=== PATIENT | female | born 1945 ===

== ENCOUNTER 2017-07-02 10:37 | Emergency (ER) | payer MEDICARE ==
[2017-07-02 10:48] VITALS: TEMP 97
[2017-07-02 10:49] VITALS: BMI 23.0
--- NOTE | 2017-07-02 11:14 | ED PDOC ---
HPI: General Adult Time Seen by Provider: 07/02/17 11:13 Chief Complaint (Nursing): Back Pain Chief Complaint (Provider): hip pain, back pain History Per: Patient, Family (Patient's daughter is at bedside translating for patient in Kosovan) Additional Complaint(s): 72-year-old female with history of back pain presents to emergency department with bilateral hip pain and lower back pain for 2 weeks. Patient slipped and fell at home last Saturday and never sought medical attention at that time. She takes Vicodin daily for pain as needed and she states this medication has not helped her pain. No radiation of pain to lower extremities, no bowel or bladder dysfunction, no fever or chills, no chest pain, shortness of breath or dyspnea on exertion. She woke up today with severe pain and called her daughter and patient was brought here by ambulance. Patient did not take Vicodin today. Past Medical History Reviewed: Historical Data, Nursing Documentation, Vital Signs Vital Signs: Last Vital Signs Temp 97 F L 07/02/17 10:48 Pulse 89 07/02/17 12:36 Resp 18 07/02/17 12:36 BP 161/88 H 07/02/17 12:36 Pulse Ox 98 07/02/17 13:52 - Medical History PMH: Arthritis, HTN, Hypercholesterolemia, Osteoporosis - Surgical History Surgical History: (x 1) - Family History Family History: States: No Known Family Hx - Living Arrangements Living Arrangements: With Family - Social History Current smoker - smoking cessation education provided: No Alcohol: None Drugs: Denies - Home Medications Home Medications: Ambulatory Orders Medication Instructions Recorded Cephalexin [Keflex] 500 mg PO BID #14 cap 06/11/15 Naproxen [Naprosyn Tab] 375 mg PO BID PRN #15 tab 06/11/15 Sulfamethoxazole/Trimethoprim 1 tab PO BID #14 tab 06/11/15 [Bactrim DS 800 mg-160 mg] Cyclobenzaprine [Cyclobenzaprine 10 mg PO TID PRN #20 tab 07/02/17 HCl] Naproxen [Naprosyn] 500 mg PO BID #20 tab 07/02/17 - Allergies Allergies/Adverse Reactions: Allergies Allergy/AdvReac Type Severity Reaction Status Date / Time No Known Allergies Allergy Verified 07/02/17 10:48 Review of Systems ROS Statement: Except As Marked, All Systems Reviewed And Found Negative Constitutional: Negative for: Fever, Chills, Weakness Cardiovascular: Negative for: Chest Pain Respiratory: Negative for: Cough Gastrointestinal: Negative for: Nausea, Vomiting Genitourinary Female: Negative for: Dysuria, Frequency, Incontinence, Hematuria Musculoskeletal: Positive for: Back Pain, Other (b/l hip pain) Neurological: Negative for: Weakness, Numbness, Incoordination, Change in Speech , Confusion, Seizures, Altered Mental Status, Headache, Dizziness Physical Exam - Reviewed Nursing Documentation Reviewed: Yes Vital Signs Reviewed: Yes - Physical Exam Appears: Positive for: Well, Non-toxic, No Acute Distress Skin: Negative for: Rash Eye Exam: Positive for: Normal appearance Neck: Positive for: Painless ROM Cardiovascular/Chest: Positive for: Regular Rate, Rhythm Respiratory: Positive for: Normal Breath Sounds, Respiratory Distress. Negative for: Wheezing Gastrointestinal/Abdominal: Positive for: Soft. Negative for: Tenderness, Distended, Guarding, Rebound Back: Positive for: Vertebral Tenderness (Across lower lumbar region with palpable muscle spasm). Negative for: L CVA Tenderness, R CVA Tenderness Extremity: Positive for: Other (Tenderness to lateral aspect of both hips, full range of motion lower extremities) Neurologic/Psych: Positive for: Alert, Oriented - Laboratory Results Urine dip results: Negative for: Leukocyte Esterase, Blood, Nitrate, Ketones, Glucose, Bilirubin, Protein - ECG O2 Sat by Pulse Oximetry: 98 Pulse Ox Interpretation: Normal - Other Rad L/S Spine X-ray X-Ray: Interpreted by Me, Viewed By Me X-Ray Interpretation: no fx, no dis Pelvis and B/L Hips X-Ray: Interpreted by Me, Viewed By Me X-Ray Interpretation: no fx, no dis Medical Decision Making Medical Decision Makin72 year old with low back pain and bilateral hip pain Plan: UA X-rays LS Spine, b/l hips and pelvis IM toradol PO valium PO percocet Patient states she feels much better after meds given in ED. Patient was able to walk to bathroom and states she feels much better. Patient has vicodin at home that she was instructed to continue with. Rx flexeril and naprosyn given. Advised PMD follow up in 2-3 days. Disposition - Clinical Impression Clinical Impression: Back pain, Hip pain - Patient ED Disposition Is Patient to be Admitted: No Counseled Patient/Family Regarding: Studies Performed, Diagnosis, Need For Followup, Rx Given - Disposition Referrals: [facility] [place] [Outside] Disposition: Routine/Home Disposition Time: 14:48 Condition: IMPROVED Additional Instructions: CONTINUE WITH THE HYDROCODONE (VICODIN) THAT YOU HAVE AT HOME AND TAKE WITH NEW RX MEDS. REST AND AVOID HEAVY LIFTING. FOLLOW UP WITH PRIMARY CARE DOCTOR IN 2 -3 DAYS. Prescriptions: Cyclobenzaprine [Cyclobenzaprine HCl] 10 mg PO TID PRN #20 tab PRN Reason: Muscle Spasm Naproxen [Naprosyn] 500 mg PO BID #20 tab Instructions: Hip Pain (DC) Forms: [facility] (Kosovan) Print Language: KITTITIAN
[2017-07-02] MEDS ORDERED: Oxycodone/Acetaminophen 5/325 mg Tab PO STA (11:47)
[2017-07-02] MEDS ORDERED: Oxycodone/Acetaminophen 5/325 mg Tab ONE (12:06)
[2017-07-02 12:45] VITALS: BP 161/88; PULSE 89; RESP 18
--- NOTE | 2017-07-02 12:51 | RAD ---
PROCEDURE: Radiographs of the Lumbar Spine. HISTORY: pain COMPARISON: No prior. FINDINGS: BONES: Normal alignment. No listhesis. No fracture. DISC SPACES: Unremarkable. OTHER FINDINGS: None. IMPRESSION: Unremarkable radiographs of the lumbar spine.
--- NOTE | 2017-07-02 12:52 | RAD ---
PROCEDURE: Radiographs of the pelvis and bilateral hips HISTORY: pain COMPARISON: None. FINDINGS: BONES: Pelvis: Unremarkable. Right hip:Unremarkable. Left hip:Unremarkable. JOINTS: Right hip: Mild osteoarthritis. Marginal osteophyte superior acetabulum. Left hip: Mild osteoarthritis. Marginal osteophyte superior acetabulum. Sacroiliac Joints: Unremarkable. Pubic symphysis: Unremarkable. SOFT TISSUES: Normal. OTHER FINDINGS: None. IMPRESSION: Mild bilateral osteoarthritis. Otherwise unremarkable.
[2017-07-02 13:15] VITALS: O2SAT 98
[2017-07-02 15:00] LABS: SQUAMOUS EPITHIAL < 1 /hpf (0-5); URINE BILIRUBIN NEGATIVE (NEGATIVE); URINE BLOOD NEGATIVE (NEGATIVE); URINE CLARITY CLEAR (Clear); URINE COLOR YELLOW (YELLOW); URINE GLUCOSE (UA) NEG (Normal); URINE LEUKOCYTE ESTERASE NEG Leu/uL (Negative); URINE PROTEIN NEGATIVE (NEGATIVE); URINE UROBILINOGEN 0.2-1.0 mg/dL (0.2-1.0)
== END 2017-07-02 15:06 | disposition home or self-care (01) ==
LOC: H.ER 10:37
DX: M54.9 Dorsalgia, unspecified (principal); M25.559 Pain in unspecified hip; W01.0XXA Fall on same level from slipping, tripping and stumbling without subsequent striking against object, initial encounter; Y92.89 Other specified places as the place of occurrence of the external cause; E78.00 Pure hypercholesterolemia, unspecified; I10 Essential (primary) hypertension; M81.0 Age-related osteoporosis without current pathological fracture
CPT/HCPCS: 72100; 73522; 81003; 96372; 99283; J1885